=== PATIENT | female | born 1995 | race African-American/Black ===

== ENCOUNTER 2018-03-16 09:07 | Emergency (ER) | payer OTHER ==
[2018-03-16] MEDS ORDERED: LIDOCAINE 1% MPF 5 ML VIAL ONE (10:52)
--- NOTE | 2018-03-16 11:28 | RAD REPORT ---
EXAM DESCRIPTION: RAD - Hand Left 3 View - 03/16/2018 10:11 am CLINICAL HISTORY: Hand trauma, laceration COMPARISON: None. FINDINGS: No fracture, dislocation or periosteal reaction noted. No foreign body or other soft tissu e abnormality. IMPRESSION: Negative left hand examination.
--- NOTE | 2018-03-16 11:31 | EDPHYS ---
Physician Documentation [facility] Name: Vincent Farmer Age: 22 yrs Sex: Female : 1995 Arrival Date: 03/16/2018 Time: 09:13 Bed 18 Private MD: ED Physician Jose Humphreys HPI: 03/16 09:30 This 22 yrs old Black Female presents to ER via Ambulatory with complaints of cp Laceration - FINGER. 09:30 The patient has a laceration occurred at work. cp 09:30 The laceration(s) is(are) located on the palmar aspect of distal phalanx of left middle cp finger and palmar aspect of distal phalanx of left ring finger. Onset: The symptoms/episode began/occurred just prior to arrival. 09:30 Associated signs and symptoms: Pertinent negatives: deformity, heavy bleeding, numbness cp distal to injury, suspected foreign body. 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 - Social history:: Smoking status: Patient/guardian denies using tobacco. - Ebola Screening: : No symptoms or risks identified at this time. ROS: 09:35 Constitutional: Negative for body aches, chills, fever, poor PO intake. cp 09:35 Cardiovascular: Negative for chest pain. cp 09:35 Respiratory: Negative for cough, shortness of breath, wheezing. 09:35 Abdomen/GI: Negative for abdominal pain, nausea, vomiting, and diarrhea. 09:35 Skin: Positive for laceration(s), of the palmar aspect of distal phalanx of left middle finger and palmar aspect of distal phalanx of left ring finger. 09:35 Neuro: Negative for numbness, tingling, weakness. 09:35 All other systems are negative. Exam: 09:45 Constitutional: The patient appears in no acute distress, alert, awake, well developed, cp well nourished. 09:45 Head/Face: Normocephalic, atraumatic. cp 09:45 Eyes: Periorbital structures: appear normal, Conjunctiva: normal, no exudate, no injection, Lids and lashes: appear normal, bilaterally. 09:45 ENT: External ear(s): are unremarkable, Nose: is normal, Mouth: Lips: moist, Oral mucosa: moist. 09:45 Chest/axilla: Inspection: normal. 09:45 Cardiovascular: Rate: normal. 09:45 Respiratory: the patient does not display signs of respiratory distress, Respirations: normal, no use of accessory muscles, no retractions, no splinting, no tachypnea. 09:45 Abdomen/GI: Inspection: abdomen appears normal. 09:45 Back: pain, is absent, ROM is normal. 09:45 Skin: injury, laceration(s), the wound is approximately 1 cm(s), of the palmar aspect of distal phalanx of left ring finger, the second wound is approximately 1 cm(s), of the palmar aspect of distal phalanx of left middle finger, that can be described as clean, no foreign body, irregular, without bleeding, laceration on distal phalanx left middle finger superficial. 09:45 Neuro: Sensation: is normal. Vital Signs: 09:25 BP 132 / 90; Pulse 65; Resp 16; Temp 98.1; Pulse Ox 100% on R/A; Weight 118.84 kg; hb Height 5 ft. 4 in. (162.56 cm); Pain 2/10; 10:20 BP 130 / 87; Pulse 68; Resp 19; Pulse Ox 99% on R/A; rb1 11:20 BP 133 / 74; Pulse 71; Resp 18; Pulse Ox 100% on R/A; rb1 12:10 BP 139 / 82; Pulse 72; Resp 18; Pulse Ox 100% on R/A; Pain 0/10; rb1 09:25 Body Mass Index 44.97 (118.84 kg, 162.56 cm) hb Laceration: 11:27 Wound Repair of 1cm ( 0.4in ) subcutaneous laceration to distal phalanx swann side cp left fourth finger. Skin/tissue flap noted.. Distal neuro/vascular/tendon intact. Anesthesia: Wound infiltrated with 2 mls of 1% lidocaine. Wound prep: Moderate cleansing by pipeline technician. Skin closed with 2 5-0 Prolene using interrupted sutures and sterile technique. Dressed with Bacitracin, non-adherent dressing. Patient tolerated well. MDM: 09:19 Patient medically screened. cp 10:00 Differential diagnosis: superficial laceration, tendon injury, vascular injury. cp 11:30 Data reviewed: vital signs, nurses notes, radiologic studies, plain films. cp 11:30 Test interpretation: by ED physician or midlevel provider: plain radiologic studies. cp 11:30 Counseling: I had a detailed discussion with the patient and/or guardian regarding: the cp historical points, exam findings, and any diagnostic results supporting the discharge/admit diagnosis, radiology results, to return to the emergency department if symptoms worsen or persist or if there are any questions or concerns that arise at home. 11:30 Response to treatment: the patient's symptoms have markedly improved after treatment, cp and as a result, I will discharge patient. 03/16 12:10 Order name: Urine Dipstick--Ancillary (enter results) bd 03/16 12:10 Order name: Urine --Ancillary (enter results) bd 03/16 09:27 Order name: Wound Care; Complete Time: 10:47 cp 03/16 09:27 Order name: XRAY Hand LEFT 3 View; Complete Time: 11:41 cp 03/16 11:41 Interpretation: Report reviewed. cp 03/16 09:28 Order name: Urine Dipstick-Ancillary (obtain specimen); Complete Time: 11:10 cp 03/16 09:28 Order name: Urine Test (obtain specimen); Complete Time: 11:10 cp 03/16 10:36 Order name: Prolene, Sutures; Complete Time: 10:58 cp 03/16 10:36 Order name: Dressing - Wound; Complete Time: 12:07 cp 03/16 10:36 Order name: Gloves, Sterile; Complete Time: 11:39 cp 03/16 10:36 Order name: Setup Suture Tray; Complete Time: 10:47 cp 03/16 11:29 Order name: Dressing - Wound: tube guaze and finger splint; Complete Time: 12:07 cp Administered Medications: 11:20 Drug: Lidocaine (1 %) 5 ml Volume: 5 ml; Route: Infiltration; rb1 Disposition: 12:30 Chart complete. cp 03/17 07:17 Co-signature as Attending Physician, Jose Humphreys MD I agree with the assessment and say plan of care. Disposition: 03/16/18 11:31 Discharged to Home. Impression: Laceration without foreign body of left ring finger without damage to nail. - Condition is Stable. - Discharge Instructions: Laceration Care, Adult. - Prescriptions for Keflex 500 mg Oral Capsule - take 1 capsule by ORAL route every 8 hours for 10 days; 30 capsule. - Medication Reconciliation Form, Thank You Letter, Antibiotic Education, Prescription Opioid Use, Work release form form. - Follow up: Private Physician; When: 7 - 10 days; Reason: Staple/Suture removal. - Problem is new. - Symptoms have improved. Signatures: Dispatcher [employer] EDMS Jose Humphreys MD MD cha Page, Corey, PA PA cp Barber, Rebecca, RN RN rb1 Salima Lindquist RN RN Corrections: (The following items were deleted from the chart) 03/16 12:15 11:31 03/16/2018 11:31 Discharged to Home. Impression: Laceration without foreign body rb1 of left ring finger without damage to nail. Condition is Stable. Forms are Medication Reconciliation Form, Thank You Letter, Antibiotic Education, Prescription Opioid Use. Follow up: Private Physician; When: 7 - 10 days; Reason: Staple/Suture removal. Problem is new. Symptoms have improved. cp
--- NOTE | 2018-03-16 11:31 | ER ---
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 Transition hb of care: patient was not received from another setting of care. Complicating Factors: There are no complicating factors for this patient. Onset of symptoms was March 16, 2018. Risk Assessment: Do you want to hurt yourself or someone else? Patient reports no desire to harm self or others. Initial Sepsis Screen: Does the patient meet any 2 criteria? No. Patient's initial sepsis screen is negative. Does the patient have a suspected source of infection? No. Patient's initial sepsis screen is negative. Care prior to arrival: None. 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 - Social history:: Smoking status: Patient/guardian denies using tobacco. - Ebola Screening: : No symptoms or risks identified at this time. Screenin:25 Abuse screen: Denies threats or abuse. Denies injuries from another. Nutritional hb screening: No deficits noted. Tuberculosis screening: No symptoms or risk factors identified. Fall Risk None identified. Assessment: 09:22 General: Appears in no apparent distress. comfortable, Behavior is calm, cooperative. rb1 General: Pt. cut fingers on the tomato slicer. Pain: Complains of pain in palmar aspect of distal phalanx of left ring finger and palmar aspect of distal phalanx of left middle finger Pain currently is 2 out of 10 on a pain scale. Neuro: Level of Consciousness is awake, alert, obeys commands, Oriented to person, place, time, situation. Cardiovascular: Capillary refill < 3 seconds is brisk in bilateral fingers. Respiratory: Airway is patent Respiratory effort is even, unlabored, Respiratory pattern is regular, symmetrical. GI: No signs and/or symptoms were reported involving the gastrointestinal system. : No signs and/or symptoms were reported regarding the genitourinary system. Derm: Skin is dry, Skin is normal, Skin temperature is warm. Musculoskeletal: Range of motion: intact in all extremities. Injury Description: Laceration sustained to palmar aspect of distal phalanx of left ring finger and palmar aspect of distal phalanx of left middle finger is contaminated, not bleeding, was sustained less than 30 minutes ago. is bleeding no active bleeding noted. 10:20 Reassessment: Patient appears in no apparent distress at this time. Patient and/or rb1 family updated on plan of care and expected duration. Pain level reassessed. Patient is alert, oriented x 3, equal unlabored respirations, skin warm/dry/pink. 11:10 Reassessment: Patient appears in no apparent distress at this time. No changes from rb1 previously documented assessment. 12:00 Reassessment: Patient appears in no apparent distress at this time. Patient and/or rb1 family updated on plan of care and expected duration. Pain level reassessed. Patient is alert, oriented x 3, equal unlabored respirations, skin warm/dry/pink. Patient states feeling better. Vital Signs: 09:25 BP 132 / 90; Pulse 65; Resp 16; Temp 98.1; Pulse Ox 100% on R/A; Weight 118.84 kg; hb Height 5 ft. 4 in. (162.56 cm); Pain 2/10; 10:20 BP 130 / 87; Pulse 68; Resp 19; Pulse Ox 99% on R/A; rb1 11:20 BP 133 / 74; Pulse 71; Resp 18; Pulse Ox 100% on R/A; rb1 12:10 BP 139 / 82; Pulse 72; Resp 18; Pulse Ox 100% on R/A; Pain 0/10; rb1 09:25 Body Mass Index 44.97 (118.84 kg, 162.56 cm) hb ED Course: 09:13 Patient arrived in ED. sb2 09:19 Jose Barragan PA is PHCP. cp 09:19 Jose Humphreys MD is Attending Physician. cp 09:21 Elma Fofana, CORDELIA is Primary Nurse. rb1 09:22 Patient has correct armband on for positive identification. Bed in low position. Call rb1 light in reach. Side rails up X 1. Pulse ox on. NIBP on. 09:24 Triage completed. hb 09:25 Arm band placed on right wrist. hb 10:11 XRAY Hand LEFT 3 View In Process Unspecified. EDMS 10:46 Wound care: to laceration located on palmar aspect of distal phalanx of left middle dh3 finger and palmar aspect of distal phalanx of left ring finger was cleaned with Hibiclens, and normal saline Patient tolerated well. 11:09 Urine collected: clean catch specimen, clear. dh3 12:05 Aluminum finger splint applied to dorsal aspect of distal phalanx of left ring finger, dh3 dorsal aspect of middle phalanx of left ring finger, dorsal aspect of proximal phalanx of left ring finger, palmar aspect of distal phalanx of left ring finger, palmar aspect of middle phalanx of left ring finger, palmar aspect of proximal phalanx of left ring finger and left ring fingernail tube gauze and triple antibiotic applied. 12:15 No provider procedures requiring assistance completed. Patient did not have IV access rb1 during this emergency room visit. Administered Medications: 11:20 Drug: Lidocaine (1 %) 5 ml Volume: 5 ml; Route: Infiltration; [facility] Outcome: 11:31 Discharge ordered by MD. cp 12:15 Patient left the ED. rb1 12:15 Discharged to home ambulatory. rb1 12:15 Condition: stable 12:15 Discharge instructions given to patient, Instructed on discharge instructions, follow up and referral plans. medication usage, Demonstrated understanding of instructions, follow-up care, medications, Prescriptions given X 1. Signatures: Dispatcher [employer] EDMI Jose Barragan PA PA cp Elma Fofana, RN RN [facility] Salima Lindquist RN RN Senait Peterson 3 Aranza Osorio2 Corrections: (The following items were deleted from the chart) 11:10 10:44 Wound care: 3 3
[2018-03-16 12:33] LABS: Urine Blood NEGATIVE (NEG); Urine Glucose NEGATIVE (NEG); Urine Protein NEGATIVE (NEG)
== END 2018-03-16 12:15 | disposition home or self-care (01) ==
LOC: ER 09:07
PROC: 0JQK0ZZ Repair Left Hand Subcutaneous Tissue and Fascia, Open Approach (ICD-10-PCS; principal; 2018-03-16)
DX: S61.215A Laceration without foreign body of left ring finger without damage to nail, initial encounter (principal); S61.213A Laceration without foreign body of left middle finger without damage to nail, initial encounter; W26.8XXA Contact with other sharp object(s), not elsewhere classified, initial encounter
CPT/HCPCS: 81003; 81025; 99284